=== PATIENT | female | born 1975 | race Caucasian/White ===

== ENCOUNTER 2016-12-05 23:13 | Emergency (ER) | payer SELFPAY ==
[~2016-12-05] VITALS: Ht 160 cm; Wt 62.0 kg
[~2016-12-05 23:13] MED LIST: CYCL-36 PO; NAPR-576 PO
[2016-12-05 23:16] VITALS: BP 146/68; PULSE 89; RESP 16; TEMP 98.6; O2SAT 97
[2016-12-06] MEDS ORDERED: CLINDAMYCIN INJ 900 MG in SODIUM CHLORIDE 0.9% INJ 100 ML IV STA (00:13)
[2016-12-06] MEDS ORDERED: BACT800T5 PO (00:20)
[2016-12-06] MEDS ORDERED: IBUP-1129 PO (00:20)
[2016-12-06] MEDS ORDERED: CLEO300C2 PO (00:20)
--- NOTE | 2016-12-06 00:20 | PD ---
HPI Chief Complaint: Skin Problem Time Seen by Provider: 00:12 Travel History International Travel<30 days: No Contact w/Intl Traveler<30days: No Traveled to known affect area: No History of Present Illness HPI 40-year-old female patient with history of hypertension, presents to the ER today because she states that she has wounds on her right elbow area and right lower leg that has not been healing for the last month. She states it hurts more today. She denies any fevers or any other symptoms. Patient's daughter has had similar wounds on and off. They state that they had been cleaning her house and think that she may have had a spider bite. Modifying Factors: None Associated Signs & Symptoms: Nonhealing wounds for the last month Risk Factors: None PFSH Past Medical History ADD: Yes Depression: Yes Diminished Hearing: No Headaches: Yes Hypertension: Yes ?: Not LMP: tubal ligation : 4 Para: 3 Miscarriage: 1 Tubal Ligation: Yes Past Surgical History Appendectomy: Yes Neurologic Surgery: No Social History Alcohol Use: No Tobacco Use: Yes Substance Use: No Allergies-Medications (Allergen,Severity, Reaction): Coded Allergies: No Known Allergies (Unverified , 12/05/16) Reported Meds & Prescriptions Reported Meds & Active Scripts Active No Active Prescriptions or Reported Medications Review of Systems Except as stated in HPI: all other systems reviewed are Neg Physical Exam Narrative GENERAL: Well-developed middle age white female patient currently none acute distress. Awake and oriented 3. SKIN: Focused skin assessment warm/dry. There is a posterior lower leg 1 cm ulcerated area with surrounding erythema which is mild tender palpation without underlying fluctuance. There is another 1 cm small ulcerated area of the posterior right elbow with raised edges and surrounding erythema. Mildly tender to palpation. HEAD: Atraumatic. Normocephalic. EYES: Pupils equal and round. No scleral icterus. No injection or drainage. ENT: No nasal bleeding or discharge. Mucous membranes pink and moist. NECK: Trachea midline. No JVD. CARDIOVASCULAR: Regular rate and rhythm. No murmur appreciated. RESPIRATORY: No accessory muscle use. Clear to auscultation. Breath sounds equal bilaterally. GASTROINTESTINAL: Abdomen soft, non-tender, nondistended. Hepatic and splenic margins not palpable. MUSCULOSKELETAL: No obvious deformities. No clubbing. No cyanosis. No edema. NEUROLOGICAL: Awake and alert. No obvious cranial nerve deficits. Motor grossly within normal limits. Normal speech. PSYCHIATRIC: Appropriate mood and affect; insight and judgment normal. Data Data Last Documented VS Vital Signs Date Time Temp Pulse Resp B/P Pulse Ox O2 Delivery O2 Flow Rate FiO2 12/05/16 23:16 98.6 89 16 146/68 97 Orders Complete Blood Count With Diff (12/06/16 00:13) Comprehensive Metabolic Panel (12/06/16 00:13) Lactic Acid Sepsis Protocol (12/06/16 00:13) Blood Culture (12/06/16 00:13) Blood Glucose (12/06/16 00:13) Ecg Monitoring (12/06/16 00:13) [facility] Medical Decision Making Medical Screen Exam Complete: Yes Emergency Medical Condition: Yes Medical Record Reviewed: Yes Differential Diagnosis Infected ulcerslikely staph infection versus spider bites Narrative Course At this point, my plan would be to treat her with antibiotics and have her follow-up with primary care as needed. Return for any worsening in redness, swelling, fevers, or new symptoms. The plan was discussed with patient and she states understanding. Diagnosis Primary Impression: Staph skin infection Med/Other Pt SpecificInfo: Prescription(s) given Scripts Sulfamethoxazole-Trimethoprim (Bactrim DS)800-160 Mg Tab1 Tab PO BID #14 TAB Ref 0 Prov:Dewayne Thomason MD 12/06/16 Ibuprofen (Motrin Ib)200 Mg [id number] Mg PO QID PRN (PAIN SCALE 1 TO 10) #21 Prov:Dewayne Thomason MD 12/06/16 Clindamycin (Cleocin)300 Mg [id number] Mg PO Q6H 7 Days Ref 0 Prov:Dewayne Thomason MD 12/06/16 Disposition: 01 DISCHARGE HOME Condition: Stable Dewayne Thomason MD Dec 06, 2016 00:20
[2016-12-06 01:27] LABS: AUTOMATED NEUTROPHIL # 4.1 TH/MM3 (1.8-7.7); BASOPHIL % 0.4 % (0.0-2.0); EOSINOPHIL # 0.3 TH/MM3 (0-0.4); EOSINOPHIL % 3.9 % (0.0-4.0); HEMATOCRIT 40.7 % (35.0-46.0); HEMO FLAGS DIFF FINAL; LYMPH % 34.7 % (9.0-44.0); LYMPHOCYTE # 2.7 TH/MM3 (1.0-4.8); MEAN CELL VOLUME 86.8 FL (80.0-100.0); MEAN CORPUSCULAR HEMOGLOBIN 28.8 PG (27.0-34.0); MEAN CORPUSCULAR HGB CONC 33.2 % (32.0-36.0); MONO % 8.8 % (0.0-8.0); NEUT % 52.2 % (16.0-70.0); PLATELET COUNT 267 TH/MM3 (150-450); RED BLOOD COUNT 4.69 MIL/MM3 (4.00-5.30); RED CELL DISTRIBUTION WIDTH 13.7 % (11.6-17.2); WHITE BLOOD COUNT 7.9 TH/MM3 (4.0-11.0)
[2016-12-06 01:30] LABS: ALKALINE PHOSPHATASE 78 U/L (45-117); TOTAL BILIRUBIN ADULT 0.5 MG/DL (0.2-1.0)
[2016-12-06 02:12] LABS: ALT (GPT) 21 U/L (10-53); ANION GAP 8 MEQ/L (5-15); AST (GOT) 20 U/L (15-37); BICARBONATE 26.3 MEQ/L (21.0-32.0); BLOOD UREA NITROGEN 12 MG/DL (7-18); CHLORIDE 108 MEQ/L (98-107); GLOMERULAR FILTRATION RATE 102 ML/MIN (>89); POTASSIUM 3.7 MEQ/L (3.5-5.1); SODIUM (NA) 142 MEQ/L (136-145)
[2016-12-06] MEDS ORDERED: DIFL150T PO (02:37)
[2016-12-06 02:45] VITALS: BP 142/76; PULSE 80; RESP 16; O2SAT 99
== END 2016-12-06 02:48 | disposition home or self-care (01) ==
LOC: NEPC 23:13
DX: L08.9 Local infection of the skin and subcutaneous tissue, unspecified (principal); B95.8 Unspecified staphylococcus as the cause of diseases classified elsewhere; I10 Essential (primary) hypertension; Z72.0 Tobacco use; Z86.59 Personal history of other mental and behavioral disorders
CPT/HCPCS: 80053; 83605; 85025; 87040; 96365